=== PATIENT | female | born 1995 | race African-American/Black ===

== ENCOUNTER 2017-03-06 23:29 | Inpatient (IN) | payer MEDICAID ==
[~2017-03-06] VITALS: Ht 175.3 cm; Wt 120.0 kg
[~2017-03-06 23:29] MED LIST: ALBUAER3 INH; DEPO150I IM; NAPR5TAB5 PO; PREN1CAP30 PO
[2017-03-06 23:31] VITALS: BP 163/74; PULSE 103; RESP 18; TEMP 101.5; O2SAT 99
[2017-03-07] VITALS (7 sets, daily range): BP systolic 91–128; BP diastolic 52–74; PULSE 69–107; RESP 16–22; TEMP 97.3–102.4; O2SAT 90–100
--- NOTE | 2017-03-07 00:53 | PD ---
HPI Chief Complaint: Edema Time Seen by Provider: 00:48 Travel History International Travel<30 days: No Contact w/Intl Traveler<30days: No Traveled to known affect area: No History of Present Illness HPI 21 year-old female presents to the emergency department for complaint of right lower extremity pain swelling redness and warmth since yesterday evening. Symptoms have worsened in the last 24 hours. Patient denies any known injury. Patient denies puncture wound insect bite envenomation and denies history of diabetes. Patient's last period was Friday and patient denies . The patient rates her pain 10 over 10 in intensity. FORMERLY [facility] Past Medical History Narrative Medical asthma, no surgery; no tobacco use; nursing notes reviewed Asthma: Yes Diminished Hearing: No Respiratory: Yes (ASTHMA) Immunizations Current: Yes ?: Not : 2 Para: 2 Past Surgical History Surgical History: No Previous Surgery Social History Alcohol Use: No Tobacco Use: No (crit early in ) Substance Use: Yes (HX MARIJUANNA) Allergies-Medications (Allergen,Severity, Reaction): Coded Allergies: No Known Allergies (Verified Allergy, Unknown, 03/07/17) Reported Meds & Prescriptions Reported Meds & Active Scripts Active No Active Prescriptions or Reported Medications Review of Systems Except as stated in HPI: all other systems reviewed are Neg Physical Exam Narrative GENERAL: Well-developed well-nourished female in obvious discomfort with fever SKIN: Warm and dry. Attention right lower extremity warmth redness swelling tenderness. HEAD: Normocephalic. EYES: No scleral icterus. No injection or drainage. NECK: Supple, trachea midline. No JVD or lymphadenopathy. CARDIOVASCULAR: Regular rate and rhythm without murmurs, gallops, or rubs. RESPIRATORY: Breath sounds equal bilaterally. No accessory muscle use. GASTROINTESTINAL: Abdomen soft, non-tender, nondistended. MUSCULOSKELETAL: No cyanosis, or edema. Attention right lower extremity warmth redness swelling tenderness. Refill brisk and less than 2 seconds. BACK: Nontender without obvious deformity. No CVA tenderness. Data Data Last Documented VS Vital Signs Date Time Temp Pulse Resp B/P (MAP) Pulse Ox O2 Delivery O2 Flow Rate FiO2 03/06/17 23:31 101.5 103 18 163/74 (103) 99 Room Air Orders Orders Iv Access Insert/Monitor (03/07/17 00:20) Urinalysis - C+S If Indicated (03/07/17 00:20) Complete Blood Count With Diff (03/07/17 00:20) Blood Culture (03/07/17 00:20) Sepsis Workup Initiated (03/07/17 ) Comprehensive Metabolic Panel (03/07/17 00:29) Lactic Acid Sepsis Protocol (03/07/17 00:29) Blood Culture (03/07/17 00:29) Oximetry (03/07/17 00:29) Blood Glucose (03/07/17 00:29) Vancomycin Inj (Vancomycin Inj) (03/07/17 01:00) Ketorolac Inj (Toradol Inj) (03/07/17 01:00) Sodium Chlor 0.9% 1000 Ml Inj (Ns 1000 M (03/07/17 01:00) Acetaminophen (Tylenol) (03/07/17 01:00) Ed Urine Pregnancytest Poc (03/07/17 00:48) Foot, Complete ([id number]) (03/07/17 ) Tibia/Fibula (Ap/Lat) (03/07/17 ) Us Leg Venous Doppler (03/07/17 ) Ondansetron Inj (Zofran Inj) (03/07/17 01:00) Morphine Inj (Morphine Inj) (03/07/17 01:00) Admit Order (Ed Use Only) (03/07/17 ) Vital Signs (Adult) Q4H (03/07/17 01:24) Activity Oob With Assistance (03/07/17 01:24) Notify Dr: Other (03/07/17 01:24) Labs Laboratory Tests Test 03/07/17 00:30 03/07/17 00:39 White Blood Count 24.4 TH/MM3 Red Blood Count 4.65 MIL/MM3 Hemoglobin 11.9 GM/DL Hematocrit 36.5 % Mean Corpuscular Volume 78.3 FL Mean Corpuscular Hemoglobin 25.5 PG Mean Corpuscular Hemoglobin Concent 32.5 % Red Cell Distribution Width 15.5 % Platelet Count 260 TH/MM3 Mean Platelet Volume 8.3 FL Neutrophils (%) (Auto) 89.7 % Lymphocytes (%) (Auto) 6.7 % Monocytes (%) (Auto) 3.4 % Eosinophils (%) (Auto) 0.0 % Basophils (%) (Auto) 0.2 % Neutrophils # (Auto) 21.9 TH/MM3 Lymphocytes # (Auto) 1.6 TH/MM3 Monocytes # (Auto) 0.8 TH/MM3 Eosinophils # (Auto) 0.0 TH/MM3 Basophils # (Auto) 0.0 TH/MM3 CBC Comment DIFF FINAL Differential Comment Lactic Acid Level 1.1 mmol/L MDM Medical Decision Making Medical Screen Exam Complete: Yes Emergency Medical Condition: Yes Medical Record Reviewed: Yes Interpretation(s) no dvt Last Impressions Tibia/Fibula X-Ray 03/07/17 0000 Signed Impressions: Service Date/Time: Tuesday, March 07, 2017 01:04 - CONCLUSION: Diffuse superficial soft tissue edema. No evidence of fracture. Kentrell Bone MD Lower Extremity Ultrasound 03/07/17 0000 Signed Impressions: Service Date/Time: Tuesday, March 07, 2017 01:08 - CONCLUSION: No evidence of right lower extremity DVT. Kentrell Bone MD Foot X-Ray 03/07/17 0000 Signed Impressions: Service Date/Time: Tuesday, March 07, 2017 01:05 - CONCLUSION: Diffuse superficial soft tissue edema. Kentrell Bone MD CBC & BMP Diagram 03/07/17 00:30 Vital Signs Date Time Temp Pulse Resp B/P (MAP) Pulse Ox O2 Delivery O2 Flow Rate FiO2 03/06/17 23:31 101.5 103 18 163/74 (103) 99 Room Air Differential Diagnosis Cellulitis, DVT, compartment syndrome Narrative Course IV access obtained specimens collected and sent for resulting patient administered vancomycin acetaminophen and Toradol patient will be admitted for management of acute cellulitis of the right lower extremity ultrasound to rule out DVT ordered Patient informed of imaging results and lab results and need for admission Patient will be admitted for sepsis and cellulitis right lower extremity Sepsis Criteria SIRS Criteria (2 or more): Temp > 100.9 or < 96.8, Heart rate over 90, WBC > 01816, < 4000 or > 10% bands Sepsis Criteria (SIRS+source): Infect source susp/known (cellulitis RLE) Physician Communication Physician Communication discussed with DR Garcia Diagnosis Primary Impression: Cellulitis of right leg Additional Impression: Sepsis Admitting Information Admitting Physician Requests: Admit Scripts No Active Prescriptions or Reported Meds Karla Lemus MD Mar 07, 2017 00:53
[2017-03-07] MEDS ORDERED: ONDANSETRON HCL 4 MG/2 ML VIAL IV PUSH ONE (01:00)
[2017-03-07] MEDS ORDERED: MORPHINE SULFATE 4 MG/ML INJ IV PUSH ONE (01:00)
[2017-03-07] MEDS ORDERED: ACETAMINOPHEN 500 MG CPLT PO ONE (01:00)
[2017-03-07] MEDS ORDERED: KETOROLAC TROMETHAMINE 30 MG/ML (IVP) VIAL IV PUSH ONE (01:00)
[2017-03-07] MEDS ORDERED: SODIUM CHLOR 0.9% 1000 ML INJ 1,000 ML IV ONE (01:00)
[2017-03-07] MEDS ORDERED: VANCOMYCIN INJ 1,000 MG in SODIUM CHLOR 0.9% 250 ML INJ 250 ML IV ONE (01:00)
[2017-03-07 01:09] LABS: AUTOMATED NEUTROPHIL # 21.9 TH/MM3 (1.8-7.7); BASOPHIL % 0.2 % (0.0-2.0); HEMATOCRIT 36.5 % (35.0-46.0); HEMO FLAGS DIFF FINAL; LYMPH % 6.7 % (9.0-44.0); LYMPHOCYTE # 1.6 TH/MM3 (1.0-4.8); MEAN CELL VOLUME 78.3 FL (80.0-100.0); MEAN CORPUSCULAR HEMOGLOBIN 25.5 PG (27.0-34.0); MEAN CORPUSCULAR HGB CONC 32.5 % (32.0-36.0); MONO % 3.4 % (0.0-8.0); NEUT % 89.7 % (16.0-70.0); PLATELET COUNT 260 TH/MM3 (150-450); RED BLOOD COUNT 4.65 MIL/MM3 (4.00-5.30); RED CELL DISTRIBUTION WIDTH 15.5 % (11.6-17.2); WHITE BLOOD COUNT 24.4 TH/MM3 (4.0-11.0)
--- NOTE | 2017-03-07 01:20 | RADRPT ---
EXAM DATE/TIME: 03/07/2017 01:04 [facility] COMPARISON: No previous studies available for comparison. INDICATIONS : Right leg swelling x 1 day MEDICAL HISTORY : None. SURGICAL HISTORY : None. ENCOUNTER: Initial ACUITY: 1 day PAIN SCORE: 7/10 LOCATION: Right Tib-fib FINDINGS: 4 views right tibia and fibula. Bone alignment within normal limits. No evidence of fracture. No foc al bone erosion. Corticated ossicle of the tibial tubercle. Diffuse superficial soft tissue edema. CONCLUSION: Diffuse superficial soft tissue edema. No evidence of fracture. Kentrell Bone MD on March 07, 2017 at 1:17 Board Certified Radiologist. This report was verified electronically.
--- NOTE | 2017-03-07 01:22 | RADRPT ---
EXAM DATE/TIME: 03/07/2017 01:05 [facility] COMPARISON: No previous studies available for comparison. INDICATIONS : Right foot swelling x 1 day. MEDICAL HISTORY : None. SURGICAL HISTORY : None. ENCOUNTER: Initial ACUITY: 1 day PAIN SCORE: 7/10 LOCATION: Right Foot FINDINGS: 3 views right foot. There is a small well-defined and corticated middle phalanx of the second toe ind icating an anatomic variant. Bone alignment within normal limits. No evidence of fracture. Diffuse s uperficial soft tissue edema. CONCLUSION: Diffuse superficial soft tissue edema. Kentrell Bone MD on March 07, 2017 at 1:19 Board Certified Radiologist. This report was verified electronically.
--- NOTE | 2017-03-07 01:37 | RADRPT ---
EXAM DATE/TIME: 03/07/2017 01:08 [facility] COMPARISON: No previous studies available for comparison. INDICATIONS : Right leg swelling. MEDICAL HISTORY : Asthma. Substance use. SURGICAL HISTORY : None. ENCOUNTER: Subsequent ACUITY: 1 week PAIN SCORE: 6/10 LOCATION: Right leg. TECHNIQUE: Venous ultrasound of the leg was performed from the inguinal ligament to the proximal calf. Real-marcelina e, color Doppler and spectral tracing, compression and augmentation techniques were used. FINDINGS: There is normal compressibility of the deep venous system from the inguinal region to the proximal ca lf. No echogenic clot is seen in the lumen of the common femoral, femoral, popliteal, and posterior tibial veins. There is a normal response of the venous system to proximal and distal augmentation an d respiration. CONCLUSION: No evidence of right lower extremity DVT. Kentrell Bone MD on March 07, 2017 at 1:35 Board Certified Radiologist. This report was verified electronically.
[2017-03-07] MEDS ORDERED: ACETAMINOPHEN 325 MG TAB PO PRN (01:45)
[2017-03-07] MEDS ORDERED: ONDANSETRON HCL 4 MG/2 ML VIAL IVP PRN (01:45)
[2017-03-07] MEDS ORDERED: BISACODYL 10 MG SUPP RECTAL PRN (01:45)
[2017-03-07] MEDS ORDERED: Vancomycin Consult Pharmacy 1 EA OTHER SCH (01:45)
[2017-03-07] MEDS ORDERED: MAGNESIUM HYDROXIDE SUSP 30 ML CUP PO PRN (01:45)
[2017-03-07] MEDS ORDERED: LACTULOSE SYRUP 20 GM/30 ML CUP PO PRN (01:45)
[2017-03-07] MEDS ORDERED: SODIUM CHLORIDE 0.9% FLUSH 10 ML FLUSH IV FLUSH PRN (01:45)
[2017-03-07] MEDS ORDERED: SENNOSIDES 8.6 MG TAB PO PRN (01:45)
[2017-03-07] MEDS ORDERED: MORPHINE SULFATE 2 MG/ML INJ IV PRN (02:00)
--- NOTE | 2017-03-07 02:14 | HHI.HP ---
[facility] Renaldo Stack MD Admission Diagnosis RLE cellulitis; sepsis Diagnoses: (1) Sepsis Diagnosis: Principal (2) Cellulitis of right leg Diagnosis: Principal (3) HTN (hypertension) Diagnosis: Principal Travel History International Travel<30 Days: No Contact w/Intl Traveler <30 Da: No Traveled to Known Affected Are: No History of Present Illness This is a 21-year-old female with a PMH of Asthma who presented to the ER with complaints of right leg pain and swelling x1 day. Denies injury, trauma or known insect bite. States symptoms started last night and have gotten progressively worse, today w/ difficulty ambulating due to pain. No reported fever/chills. On arrival, BP 163/74, HR 103, O2 sat 99% on RA, Temp 102.4. WBC 24.4. Tib-fib/Foot X-ray with diffuse superficial soft tissue edema, no fracture. LE Doppler negative for DVT. S/p Blood Cultures and Vanc in ER. Review of Systems Except as stated in HPI: all other systems reviewed are Neg ROS: 14 point review of systems otherwise negative. Past Family Social History Past Medical History PMH: Asthma Past Surgical History PAST SURGICAL HISTORY: None Allergies: Coded Allergies: No Known Allergies (Verified Allergy, Unknown, 03/07/17) Family History PAST FAMILY HISTORY: Reviewed. No h/o DM or CAD Social History PAST SOCIAL HISTORY: Negative for alcohol, tobacco or drugs. Physical Exam Vital Signs Vital Signs Date Time Temp Pulse Resp B/P (MAP) Pulse Ox O2 Delivery O2 Flow Rate FiO2 03/07/17 01:52 102.4 107 18 128/72 (90) 100 Room Air 03/06/17 23:31 101.5 103 18 163/74 (103) 99 Room Air Physical Exam PE: GENERAL: Young obese black female in no acute distress. HEENT: PERRLA, EOMI. No scleral icterus or conjunctival pallor. No lid lag or facial droop. CARDIOVASCULAR: Regular rate and rhythm. No obvious murmurs to auscultation. No chest tenderness to palpation. RESPIRATORY: No obvious rhonchi or wheezing. Clear to auscultation. Breath sounds equal bilaterally. GASTROINTESTINAL: Abdomen soft, non-tender, nondistended. BS normal. MUSCULOSKELETAL: Extremities without clubbing, cyanosis, or edema. No obvious deformities. RLE swelling/erythema, no obvious puncture/abscess. Pulses intact NEUROLOGICAL: Awake, alert and oriented x4. No focal neurologic deficits. Moving both upper and lower extremities spontaneously. Laboratory Laboratory Tests Test 03/07/17 00:30 03/07/17 00:39 White Blood Count 24.4 Red Blood Count 4.65 Hemoglobin 11.9 Hematocrit 36.5 Mean Corpuscular Volume 78.3 Mean Corpuscular Hemoglobin 25.5 Mean Corpuscular Hemoglobin Concent 32.5 Red Cell Distribution Width 15.5 Platelet Count 260 Mean Platelet Volume 8.3 Neutrophils (%) (Auto) 89.7 Lymphocytes (%) (Auto) 6.7 Monocytes (%) (Auto) 3.4 Eosinophils (%) (Auto) 0.0 Basophils (%) (Auto) 0.2 Neutrophils # (Auto) 21.9 Lymphocytes # (Auto) 1.6 Monocytes # (Auto) 0.8 Eosinophils # (Auto) 0.0 Basophils # (Auto) 0.0 CBC Comment DIFF FINAL Differential Comment Lactic Acid Level 1.1 Date/Time Source Procedure Growth Status 03/07/17 00:30 Blood Peripheral Aerobic Blood Culture Pending Received 03/07/17 00:30 Blood Peripheral Anaerobic Blood Culture Pending Received Result Diagram: 03/07/17 0030 Caprini VTE Risk Assessment Caprini VTE Risk Assessment: No/Low Risk (score <= 1) Caprini Risk Assessment Model Point Value = 1 Point Value = 2 Point Value = 3 Point Value = 5 Age 41-60 Minor surgery BMI > 25 kg/m2 Swollen legs Varicose veins or History of unexplained or recurrent spontaneous Oral contraceptives or hormone replacement Sepsis (< 1 month) Serious lung disease, including pneumonia (< 1 month) Abnormal pulmonary function Acute myocardial infarction Congestive heart failure (< 1 month) History of inflammatory bowel disease Medical patient at bed rest Age 61-74 Arthroscopic surgery Major open surgery (> 45 min) Laparoscopic surgery (> 45 min) Malignancy Confined to bed (> 72 hours) Immobilizing plaster cast Central venous access Age >= 75 History of VTE Family history of VTE Factor V Leiden Prothrombin [id number] Lupus anticoagulant Anticardiolipin antibodies Elevated serum homocysteine Heparin-induced thrombocytopenia Other congenital or acquired thrombophilia Stroke (< 1 month) Elective arthroplasty Hip, pelvis, or leg fracture Acute spinal cord injury (< 1 month) Prophylaxis Regimen Total Risk Factor Score Risk Level Prophylaxis Regimen 0-1 Low Early ambulation 2 Moderate Order ONE of the following: *Sequential Compression Device (SCD) *Heparin 5000 units SQ BID 3-4 Higher Order ONE of the following medications: *Heparin 5000 units SQ TID *Enoxaparin/Lovenox 40 mg SQ daily (WT < 150 kg, CrCl > 30 mL/min) *Enoxaparin/Lovenox 30 mg SQ daily (WT < 150 kg, CrCl > 10-29 mL/min) *Enoxaparin/Lovenox 30 mg SQ BID (WT < 150 kg, CrCl > 30 mL/min) AND/OR *Sequential Compression Device (SCD) 5 or more Highest Order ONE of the following medications: *Heparin 5000 units SQ TID (Preferred with Epidurals) *Enoxaparin/Lovenox 40 mg SQ daily (WT < 150 kg, CrCl > 30 mL/min) *Enoxaparin/Lovenox 30 mg SQ daily (WT < 150 kg, CrCl > 10-29 mL/min) *Enoxaparin/Lovenox 30 mg SQ BID (WT < 150 kg, CrCl > 30 mL/min) AND *Sequential Compression Device (SCD) Assessment and Plan Problem List: (1) Sepsis ICD Code: A41.9 - Sepsis, unspecified organism Status: Acute (2) Cellulitis of right leg ICD Code: L03.115 - Cellulitis of right lower limb Status: Acute (3) HTN (hypertension) ICD Code: I10 - Essential (primary) hypertension Assessment and Plan A/P: 1. Sepsis: Temp 102.4, WBC 24, HR 103, Source-RLE Cellulitis. S/p Blood Cultures, Vanc IV in ER. Follow up cultures, continue IV Abx. 2. RLE Cellulitis: Right Tib-Fib/Foot X-ray w/ diffuse superficial soft tissue edema, no obvious fracture, LE Doppler negative for DVT, images reviewed by me. Continue w/ IV Vanc, add Cefepime. Follow up cultures as above. 3. HTN: BP 160's on arrival, likely compounded by pain complaints, BP currently 120's. Will monitor. Optimize pain control. 4. DVT Prophylaxis: Mechanical contraindication secondary to LE infection. Heparin sq 5. Social work for d/c planning as needed. 6. Case discussed w/ ER physician at length. Physician Certification 2 Midnight Certification Type: Admission for Inpatient Services Order for Inpatient Services The services are ordered in accordance with Medicare regulations or non- Medicare payer requirements, as applicable. In the case of services not specified as inpatient-only, they are appropriately provided as inpatient services in accordance with the 2-midnight benchmark. Estimated LOS (days): 2 days is the estimated time the patient will need to remain in the hospital, assuming treatment plan goals are met and no additional complications. Post-Hospital Plan: Not yet determined Rose Garcia MD Mar 07, 2017 02:14
[2017-03-07 02:23] LABS: ALT (GPT) 14 U/L (10-53); ANION GAP 6 MEQ/L (5-15); AST (GOT) 10 U/L (15-37); BICARBONATE 28.1 MEQ/L (21.0-32.0); BLOOD UREA NITROGEN 10 MG/DL (7-18); CHLORIDE 103 MEQ/L (98-107); GLOMERULAR FILTRATION RATE 79 ML/MIN (>89); SODIUM (NA) 137 MEQ/L (136-145)
[2017-03-07 02:25] LABS: ALKALINE PHOSPHATASE 86 U/L (45-117); TOTAL BILIRUBIN ADULT 0.5 MG/DL (0.2-1.0)
[2017-03-07] MEDS: SODIUM CHLOR 0.9% 1000 ML INJ 1,000 ML IV SCH ×2 (02:37→11:51)
[2017-03-07] MEDS ORDERED: VANCOMYCIN 1,000 MG/NS 250 ML IV ONE ×2 (03:00)
[2017-03-07] MEDS: CEFEPIME INJ 1,000 MG in SODIUM CHLORIDE 0.9% INJ 100 ML IV SCH ×2 (03:02→13:53)
[2017-03-07 05:29] LABS: BACTERIA, URINE RARE /hpf; BLOOD, URINE NEG (NEG); GLUCOSE,URINE NEG (NEG); KETONE, URINE NEG (NEG); MUCUS URINE FEW /lpf (OCC); NITRITE,URINE NEG (NEG); SQUAMOUS EPITHELIAL CELL URINE 1 /hpf (0-5); URINE COLOR YELLOW (YELLW/STRAW)
[2017-03-07 05:32] LABS: COMMENT (UR) CULTURE INDICATED; CULTURE IF INDICATED CULTURE INDICATED
[2017-03-07] MEDS: SODIUM CHLORIDE 0.9% FLUSH 10 ML FLUSH IV FLUSH SCH ×2 (09:00→21:05)
[2017-03-07] MEDS: DOCUSATE SODIUM 50 MG/SENNA 8.6 MG TAB PO SCH ×2 (10:15→21:00)
[2017-03-07] MEDS: HEPARIN SODIUM - SQ 10,000 UNITS/ML VIAL SQ SCH ×2 (10:16→21:06)
[2017-03-07] MEDS: ACETAMINOPHEN/HYDROcodone 325 MG/5 MG TAB PO PRN ×2 (10:20→21:07)
--- NOTE | 2017-03-07 11:08 | HHI.PR ---
Subjective Remarks Follow-up sepsis/right lower extremity cellulitis 03/07/17-patient seen and examined, Tmax 102.4 at 8 PM however currently afebrile. Continue to complain of right lower extremity pain. Objective Vitals Vital Signs Date Time Temp Pulse Resp B/P (MAP) Pulse Ox O2 Delivery O2 Flow Rate FiO2 03/07/17 08:00 97.3 69 16 119/74 (89) 90 03/07/17 04:00 98.7 94 17 109/54 (72) 95 03/07/17 03:29 03/07/17 03:02 99.9 93 18 99 Room Air 03/07/17 01:52 102.4 107 18 128/72 (90) 100 Room Air 03/06/17 23:31 101.5 103 18 163/74 (103) 99 Room Air I/O 03/06/17 03/06/17 03/06/17 03/07/17 03/07/17 03/07/17 07:00 15:00 23:00 07:00 15:00 23:00 Intake Total 480 ml Output Total 475 ml Balance 5 ml Intake Oral 480 ml Output Urine Total 475 ml # Voids 7 Result Diagram: 03/07/17 0030 03/07/17 0030 Imaging Last Impressions Tibia/Fibula X-Ray 03/07/17 0000 Signed Impressions: Service Date/Time: Tuesday, March 07, 2017 01:04 - CONCLUSION: Diffuse superficial soft tissue edema. No evidence of fracture. Kentrell Bone MD Lower Extremity Ultrasound 03/07/17 0000 Signed Impressions: Service Date/Time: Tuesday, March 07, 2017 01:08 - CONCLUSION: No evidence of right lower extremity DVT. Kentrell Bone MD Foot X-Ray 03/07/17 0000 Signed Impressions: Service Date/Time: Tuesday, March 07, 2017 01:05 - CONCLUSION: Diffuse superficial soft tissue edema. Kentrell Bone MD Objective Remarks GENERAL: NAD SKIN: Warm and dry. HEAD: Normocephalic. EYES: No scleral icterus. No injection or drainage. NECK: Supple, trachea midline. No JVD or lymphadenopathy. CARDIOVASCULAR: Regular rate and rhythm without murmurs, gallops, or rubs. RESPIRATORY: Breath sounds equal bilaterally. No accessory muscle use. GASTROINTESTINAL: Abdomen soft, non-tender, nondistended. MUSCULOSKELETAL: No cyanosis, or edema. RLE TTP, warm to touch BACK: Nontender without obvious deformity. No CVA tenderness. A/P Problem List: (1) Sepsis ICD Code: A41.9 - Sepsis, unspecified organism Status: Acute (2) Cellulitis of right leg ICD Code: L03.115 - Cellulitis of right lower limb Status: Acute (3) HTN (hypertension) ICD Code: I10 - Essential (primary) hypertension (4) Erysipelas of lower extremity ICD Code: A46 - Erysipelas Assessment and Plan 21-year-old female with 1. Sepsis: Source-RLE Cellulitis. S/p Blood Cultures, Follow up cultures, continue IV Abx including vancomycin and cefepime. 2. RLE Cellulitis/erysipelas: Right Tib-Fib/Foot X-ray w/ diffuse superficial soft tissue edema, no obvious fracture, LE Doppler negative for DVT, images reviewed by me. Continue w/ IV Vanc and Cefepime. Follow up cultures as above. 3. Elevated BP: Currently normotensive, Optimize pain control. 4. DVT Prophylaxis: Mechanical contraindication secondary to LE infection. Heparin sq Rob Wood MD Mar 07, 2017 11:07
[2017-03-07] MEDS ORDERED: ONDANSETRON HCL 4 MG/2 ML VIAL IV PUSH PRN (11:15)
[2017-03-07] MEDS ORDERED: TEMAZEPAM 15 MG CAP PO PRN (11:15)
[2017-03-07] MEDS: ACETAMINOPHEN 325 MG TAB PO PRN ×2 (17:09→21:07)
[2017-03-07] MEDS: VANCOMYCIN INJ 2,250 MG in SODIUM CHLORID 0.9% 500 ML INJ 500 ML IV SCH (17:10)
[2017-03-08] VITALS: BP 113/56; PULSE 91; RESP 22; TEMP 99.3; O2SAT 99
[2017-03-08] MEDS: CEFEPIME INJ 1,000 MG in SODIUM CHLORIDE 0.9% INJ 100 ML IV SCH ×2 (02:23→12:10)
[2017-03-08 04:00] VITALS: BP 108/64; PULSE 101; RESP 20; TEMP 100.8; O2SAT 95
[2017-03-08] MEDS: ACETAMINOPHEN/HYDROcodone 325 MG/5 MG TAB PO PRN ×3 (05:03→17:20)
[2017-03-08] MEDS: VANCOMYCIN INJ 2,250 MG in SODIUM CHLORID 0.9% 500 ML INJ 500 ML IV SCH ×2 (05:03→17:21)
[2017-03-08 07:11] LABS: AUTOMATED NEUTROPHIL # 10.4 TH/MM3 (1.8-7.7); BASOPHIL % 0.1 % (0.0-2.0); EOSINOPHIL # 0.1 TH/MM3 (0-0.4); EOSINOPHIL % 0.6 % (0.0-4.0); HEMATOCRIT 28.9 % (35.0-46.0); HEMO FLAGS DIFF FINAL; LYMPHOCYTE # 1.4 TH/MM3 (1.0-4.8); MEAN CELL VOLUME 78.1 FL (80.0-100.0); MEAN CORPUSCULAR HEMOGLOBIN 25.3 PG (27.0-34.0); MEAN CORPUSCULAR HGB CONC 32.5 % (32.0-36.0); MONO % 6.5 % (0.0-8.0); NEUT % 81.8 % (16.0-70.0); PLATELET COUNT 181 TH/MM3 (150-450); RED CELL DISTRIBUTION WIDTH 15.6 % (11.6-17.2); WHITE BLOOD COUNT 12.7 TH/MM3 (4.0-11.0)
[2017-03-08 07:33] LABS: ALKALINE PHOSPHATASE 69 U/L (45-117); ALT (GPT) 16 U/L (10-53); ANION GAP 6 MEQ/L (5-15); AST (GOT) 11 U/L (15-37); BICARBONATE 26.3 MEQ/L (21.0-32.0); BLOOD UREA NITROGEN 5 MG/DL (7-18); CHLORIDE 107 MEQ/L (98-107); GLOMERULAR FILTRATION RATE 142 ML/MIN (>89); POTASSIUM 3.4 MEQ/L (3.5-5.1); SODIUM (NA) 139 MEQ/L (136-145); TOTAL BILIRUBIN ADULT 0.3 MG/DL (0.2-1.0)
[2017-03-08] MEDS: SODIUM CHLORIDE 0.9% FLUSH 10 ML FLUSH IV FLUSH SCH (07:49)
[2017-03-08] MEDS: HEPARIN SODIUM - SQ 10,000 UNITS/ML VIAL SQ SCH (07:52)
[2017-03-08] MEDS: DOCUSATE SODIUM 50 MG/SENNA 8.6 MG TAB PO SCH (07:54)
[2017-03-08 08:00] VITALS: BP 106/56; PULSE 80; RESP 16; TEMP 100.2; O2SAT 100
--- NOTE | 2017-03-08 10:29 | HHI.PR ---
Subjective Remarks Follow-up sepsis/right lower extremity cellulitis 03/07/17-patient seen and examined, Tmax 102.4 at 8 PM however currently afebrile. Continue to complain of right lower extremity pain. 03/08/17-patient seen and examined, spiking fevers this morning however report some improvement of right lower extremity pain. Objective Vitals Vital Signs Date Time Temp Pulse Resp B/P (MAP) Pulse Ox O2 Delivery O2 Flow Rate FiO2 03/08/17 08:00 100.2 80 16 106/56 (73) 100 03/08/17 04:00 100.8 101 20 108/64 (79) 95 03/08/17 00:00 99.3 91 22 113/56 (75) 99 03/07/17 20:00 87 03/07/17 20:00 101.4 94 22 114/53 (73) 96 03/07/17 16:00 101.6 94 17 121/62 (81) 92 03/07/17 12:00 99.4 92 16 91/52 (65) 92 03/07/17 11:20 16 I/O 03/07/17 03/07/17 03/07/17 03/08/17 03/08/17 03/08/17 07:00 15:00 23:00 07:00 15:00 23:00 Intake Total 480 ml 600 ml 835 ml 340 ml 522.5 ml Output Total 475 ml 3 ml Balance 5 ml 600 ml 832 ml 340 ml 522.5 ml Intake Oral 480 ml 835 ml 240 ml IV Total 600 ml 100 ml 522.5 ml Output Urine Total 475 ml 3 ml # Voids 7 3 # Bowel Movements 1 Result Diagram: 03/08/17 0451 03/08/17 0451 Imaging Last Impressions Tibia/Fibula X-Ray 03/07/17 0000 Signed Impressions: Service Date/Time: Tuesday, March 07, 2017 01:04 - CONCLUSION: Diffuse superficial soft tissue edema. No evidence of fracture. Kentrell Bone MD Lower Extremity Ultrasound 03/07/17 0000 Signed Impressions: Service Date/Time: Tuesday, March 07, 2017 01:08 - CONCLUSION: No evidence of right lower extremity DVT. Kentrell Bone MD Foot X-Ray 03/07/17 0000 Signed Impressions: Service Date/Time: Tuesday, March 07, 2017 01:05 - CONCLUSION: Diffuse superficial soft tissue edema. Kentrell Bone MD Objective Remarks GENERAL: NAD SKIN: Warm and dry. HEAD: Normocephalic. EYES: No scleral icterus. No injection or drainage. NECK: Supple, trachea midline. No JVD or lymphadenopathy. CARDIOVASCULAR: Regular rate and rhythm without murmurs, gallops, or rubs. RESPIRATORY: Breath sounds equal bilaterally. No accessory muscle use. GASTROINTESTINAL: Abdomen soft, non-tender, nondistended. MUSCULOSKELETAL: No cyanosis, or edema. RLE TTP, warm to touch. size RLE>LLE BACK: Nontender without obvious deformity. No CVA tenderness. A/P Problem List: (1) Sepsis ICD Code: A41.9 - Sepsis, unspecified organism Status: Acute (2) Cellulitis of right leg ICD Code: L03.115 - Cellulitis of right lower limb Status: Acute (3) HTN (hypertension) ICD Code: I10 - Essential (primary) hypertension (4) Erysipelas of lower extremity ICD Code: A46 - Erysipelas Assessment and Plan 21-year-old female with 1. Sepsis: Source-RLE Cellulitis. S/p Blood Cultures, Follow up cultures, continue IV Abx including vancomycin and cefepime. 2. RLE Cellulitis/erysipelas: Right Tib-Fib/Foot X-ray w/ diffuse superficial soft tissue edema, no obvious fracture, LE Doppler negative for DVT. Continue w / IV Vanc and Cefepime pending culture report. ID consult PRN 3. Elevated BP: Currently normotensive, Optimize pain control. 4. DVT Prophylaxis: Mechanical contraindication secondary to LE infection. Heparin sq Rob Wood MD Mar 08, 2017 10:29
[2017-03-08 12:00] VITALS: BP 118/59; PULSE 94; RESP 16; TEMP 100.4; O2SAT 100
[2017-03-08] MEDS: ACETAMINOPHEN 325 MG TAB PO PRN (12:10)
[2017-03-08 16:00] VITALS: BP 104/57; PULSE 81; RESP 16; TEMP 96; O2SAT 99
[2017-03-08] MEDS: SODIUM CHLOR 0.9% 1000 ML INJ 1,000 ML IV SCH (17:15)
[2017-03-09] MEDS ORDERED: PHARMACY ORDERED LAB ONE (05:45)
== END 2017-03-08 19:30 | disposition left against medical advice (07) | DRG 872 ==
LOC: NEPC 23:29 → NEDA 03-07 01:26 → N07A 03-07 03:22
PROVIDERS: ADMIT Hospitalist; ATTEND Hospitalist
DX: A41.9 Sepsis, unspecified organism (principal); I10 Essential (primary) hypertension; L03.115 Cellulitis of right lower limb; J45.909 Unspecified asthma, uncomplicated; E66.9 Obesity, unspecified; Z68.39 Body mass index [BMI] 39.0-39.9, adult; A46 Erysipelas
CPT/HCPCS: 73590; 73630; 80053; 81001; 83605; 84703; 85025; 87040; 87086; 93971; J0692; J1644; J1885; J2405; J3370; J7030; J7040; J7050

== ENCOUNTER 2017-08-10 13:17 | Emergency (ER) | payer MEDICAID ==
[~2017-08-10] VITALS: Ht 175.3 cm; Wt 109.0 kg
[2017-08-10 13:27] VITALS: BP 134/74; PULSE 71; RESP 18; TEMP 99.4; O2SAT 100
[2017-08-10 14:38] LABS: AUTOMATED NEUTROPHIL # 5.6 TH/MM3 (1.8-7.7); BASOPHIL % 0.3 % (0.0-2.0); EOSINOPHIL # 0.1 TH/MM3 (0-0.4); EOSINOPHIL % 1.1 % (0.0-4.0); HEMATOCRIT 33.4 % (35.0-46.0); HEMOGLOBIN 10.8 GM/DL (11.6-15.3); LYMPH % 23.9 % (9.0-44.0); MEAN CELL VOLUME 77.6 FL (80.0-100.0); MEAN CORPUSCULAR HEMOGLOBIN 25.2 PG (27.0-34.0); MEAN CORPUSCULAR HGB CONC 32.5 % (32.0-36.0); MEAN PLATELET VOLUME 8.4 FL (7.0-11.0); MONO % 7.3 % (0.0-8.0); MONOCYTE # 0.6 TH/MM3 (0-0.9); NEUT % 67.4 % (16.0-70.0); PLATELET COUNT 256 TH/MM3 (150-450); RED CELL DISTRIBUTION WIDTH 18.1 % (11.6-17.2); WHITE BLOOD COUNT 8.3 TH/MM3 (4.0-11.0)
[2017-08-10 14:51] LABS: BILIRUBIN, URINE NEG (NEG); BLOOD, URINE NEG (NEG); GLUCOSE,URINE NEG (NEG); KETONE, URINE NEG (NEG); NITRITE,URINE NEG (NEG); PH, URINE 7.5 (5.0-8.5); SQUAMOUS EPITHELIAL CELL URINE 7 /hpf (0-5); TRANSITIONAL EPI CELLS, URINE <1 /hpf; URINE COLOR LIGHT-YELLOW (YELLW/STRAW); URINE LEUKOCYTE ESTERASE MOD (NEG)
[2017-08-10 14:56] LABS: BICARBONATE 24.9 MEQ/L (21.0-32.0); CALCIUM 8.8 MG/DL (8.5-10.1); CREATININE 0.56 MG/DL (0.50-1.00)
--- NOTE | 2017-08-10 15:27 | PD ---
HPI . Abdominal pain Chief Complaint: Abdominal Pain Time Seen by Provider: 13:32 Travel History International Travel<30 days: No Contact w/Intl Traveler<30days: No Traveled to known affect area: No History of Present Illness HPI This patient presents stating that she is and is having diffuse abdominal pain. Onset yesterday. Severity 8. Associated with hematemesis. Last menstrual period was in May. She reports a positive home test. She has not yet seen a doctor. PFSH Past Medical History Asthma: Yes Cancer: No Cardiovascular Problems: No COPD: No Diminished Hearing: No Endocrine: No Gastrointestinal Disorders: No Genitourinary: No Immune Disorder: No Implanted Vascular Access Dvce: No Musculoskeletal: No Neurologic: No Psychiatric: No Reproductive: No Respiratory: Yes Immunizations Current: Yes Sleep Apnea: No ?: Unknown LMP: UNKNOWN : 2 Para: 2 Past Surgical History Other Surgery: No Social History Alcohol Use: No Tobacco Use: No (crit early in ) Substance Use: Yes (Marijuana ) Allergies-Medications (Allergen,Severity, Reaction): Coded Allergies: No Known Allergies (Verified Allergy, Unknown, 03/07/17) Reported Meds & Prescriptions Reported Meds & Active Scripts Active No Active Prescriptions or Reported Medications Review of Systems Except as stated in HPI: all other systems reviewed are Neg Physical Exam Narrative GENERAL: Awake and alert and in no acute distress. Smiling. SKIN: Warm and dry. HEAD: Normocephalic/atraumatic. EYES: Pupils are equal. Extraocular movements are intact. ENT: Mucous membranes are pink. NECK: Normal range of motion. CARDIOVASCULAR: Regular rate and rhythm. RESPIRATORY: Nonlabored respirations. ABDOMEN: Abdomen is soft with no tenderness to palpation. RECTAL: No hemorrhoids noted. No rectal masses. MUSCULOSKELETAL: Atraumatic. NEUROLOGICAL: Nonfocal. PSYCHIATRIC: Appropriate mood and affect. Data Data Last Documented VS Vital Signs Date Time Temp Pulse Resp B/P (MAP) Pulse Ox O2 Delivery O2 Flow Rate FiO2 08/10/17 13:27 99.4 71 18 134/74 (94) 100 Orders Orders Beta Hcg (Quant/Titer) (08/10/17 13:34) Complete Blood Count With Diff (08/10/17 13:34) Basic Metabolic Panel (Bmp) (08/10/17 13:34) Urinalysis - C+S If Indicated (08/10/17 13:34) Iv Access Insert/Monitor (08/10/17 13:34) Ed Poc Ultrasound (08/10/17 13:34) Labs Laboratory Tests Test 08/10/17 13:45 White Blood Count 8.3 TH/MM3 Red Blood Count 4.30 MIL/MM3 Hemoglobin 10.8 GM/DL Hematocrit 33.4 % Mean Corpuscular Volume 77.6 FL Mean Corpuscular Hemoglobin 25.2 PG Mean Corpuscular Hemoglobin Concent 32.5 % Red Cell Distribution Width 18.1 % Platelet Count 256 TH/MM3 Mean Platelet Volume 8.4 FL Neutrophils (%) (Auto) 67.4 % Lymphocytes (%) (Auto) 23.9 % Monocytes (%) (Auto) 7.3 % Eosinophils (%) (Auto) 1.1 % Basophils (%) (Auto) 0.3 % Neutrophils # (Auto) 5.6 TH/MM3 Lymphocytes # (Auto) 2.0 TH/MM3 Monocytes # (Auto) 0.6 TH/MM3 Eosinophils # (Auto) 0.1 TH/MM3 Basophils # (Auto) 0.0 TH/MM3 CBC Comment DIFF FINAL Differential Comment Urine Color LIGHT-YELLOW Urine Turbidity HAZY Urine pH 7.5 Urine Specific [place] 1.010 Urine Protein NEG mg/dL Urine Glucose (UA) NEG mg/dL Urine Ketones NEG mg/dL Urine Occult Blood NEG Urine Nitrite NEG Urine Bilirubin NEG Urine Urobilinogen LESS THAN 2.0 MG/DL Urine Leukocyte Esterase MOD Urine RBC 1 /hpf Urine WBC 3 /hpf Urine Squamous Epithelial Cells 7 /hpf Urine Transitional Epithelial Cells <1 /hpf Microscopic Urinalysis Comment CULT NOT INDICATED Blood Urea Nitrogen 5 MG/DL Creatinine 0.56 MG/DL Random Glucose 73 MG/DL Calcium Level 8.8 MG/DL Sodium Level 138 MEQ/L Potassium Level 3.7 MEQ/L Chloride Level 106 MEQ/L Carbon Dioxide Level 24.9 MEQ/L Anion Gap 7 MEQ/L Estimat Glomerular Filtration Rate 162 ML/MIN Human Chorionic Gonadotropin, Quant 86352 MIU/ML [facility] Medical Decision Making Medical Screen Exam Complete: Yes Emergency Medical Condition: Yes Differential Diagnosis Differential diagnosis of abdominal pain includes but is not limited to gastritis, pancreatitis, hepatitis, gastroenteritis, constipation, urinary retention, peptic ulcer disease, diverticulitis or appendicitis Narrative Course Patient presents stating that she is and that she is having diffuse abdominal pain. She also reported that she was vomiting blood. She looks well. She does not appear to be in any pain. Her abdominal exam is benign. CBC & BMP Diagram 08/10/17 13:45 Calcium Level 8.8 Quantitative hCG 84,000 UA negative Procedures Procedure Narrative Emergency Department Pelvic ultrasound was performed with patient consent. The curvilinear probe was used in the transverse and sagittal views within the suprapubic region revealing positive intrauterine . heart rate was 176 with positive movement. HemaPrompt Point of Care Internal Pos. & Neg. Controls: Passed Fecal Specimen Occult Blood: Negative Diagnosis Primary Impression: Abdominal pain Qualified Codes: R10.84 - Generalized abdominal pain Additional Impressions: Intrauterine History of hematemesis Patient Instructions: Abdominal Hysterectomy (DC), General Instructions Scripts No Active Prescriptions or Reported Meds Disposition: 01 DISCHARGE HOME Condition: Stable Britany Hurtado MD August 10, 2017 15:26
== END 2017-08-10 16:23 | disposition home or self-care (01) ==
LOC: NEPD 13:17
DX: O26.899 Other specified pregnancy related conditions, unspecified trimester (principal); R10.84 Generalized abdominal pain; K92.0 Hematemesis; J45.909 Unspecified asthma, uncomplicated
CPT/HCPCS: 80048; 81001; 84702; 85025; 99283

== ENCOUNTER 2018-03-15 17:43 | Inpatient (IN) ==
[2018-03-15] MEDS ORDERED: fentaNYL Citrate Inj 100 MCG/2 ML Ampul IV.PUSH PRN (18:40)
[2018-03-15] MEDS ORDERED: Oxytocin 30 Units/500ml Premix 30 UNITS/500 ML BAG IV.SIG ONE (18:40)
[2018-03-15] MEDS ORDERED: Sod Chloride 0.9% Inj 1,000 ML IV.CONT PRN (18:40)
[2018-03-15] MEDS ORDERED: Sodium Chlor 0.9% Inj 500 ML IV.SIG PRN (18:40)
[2018-03-15] MEDS ORDERED: Naloxone Inj 0.4 MG/ML Vial IV.PUSH PRN (18:40)
[2018-03-15] MEDS ORDERED: Oxytocin 30 Units/500ml Premix 30 UNITS/500 ML BAG IV.SIG PRN (18:41)
[2018-03-15] MEDS ORDERED: Citric Acid/Sodium Citrate Liq 30 ML UDC PO SCH (18:45)
--- NOTE | 2018-03-15 18:50 | ED ---
History of Present Illness Primary Care Physician: NOT REQUIRED Chief Complaint: ctx, ?LOF History of Present Illness: Pt is a 22y/o @ 41.1wks by LMP c/w 19wk US. She has had limited PNC with Dr. Campuzano but has not been seen since 28wks. She reports LOF x2d and pain "all over". She has had no VB. +FM. OBHx: x3 PIH with 1st only glucola not performed this 2' to pt non-compliance Weeks Gestation:: 41 Para: 3 : 4 Review of Systems All other systems reviewed negative except as stated in HPI PMFSH - Medical / Surgical Hx Neg / Unobtainable Surgical History: No Previous Surgery - Medical History Medical History: Medical History (Last Updated 03/15/18 @ 18:44 by Liz Rodriguez MD) Asthma - Tobacco History Smoking Status: Current some day smoker - Alcohol History How Often Do You Have a Drink Containing Alcohol: Never - Substance Use History Substance History: Active Abuse (MJ) - Travel History Recent Travel in the [place] Within the Last 8 Weeks: No Recent Travel Out of the Country Within the Last 8 Weeks: No Medications and Allergies Active Medications: Active Medications Citric Acid/Sodium Citrate (Sodium Citrate/Citric Acid Liq) 30 ml PO [employer] [place] Stop: 03/19/18 18:44 Fentanyl Citrate (Fentanyl Inj) 50 mcg IV.PUSH Q1H PRN PRN Reason: Pain Scale 3 - 5 Lactated Ringer's (Lr 1000 Ml Inj) 1,000 mls @ 3,000 mls/hr IV.SIG UNSCH PRN PRN Reason: compromise or epidural Lactated Ringer's (Lr 1000 Ml Inj) 1,000 mls @ 125 mls/hr IV.CONT .Q8H [place] Sodium Chloride (Ns Inj) 500 mls @ 1,000 mls/hr IV.SIG UNSCH PRN PRN Reason: SEE LABEL COMMENTS Sodium Chloride (Ns Inj) 1,000 mls @ 100 mls/hr IV.CONT .Q10H PRN PRN Reason: SEE LABEL COMMENTS Oxytocin (Pitocin 30 Units/Ns 500 Ml Premix) 30 units in 500 mls @ 999 mls/hr IV.SIG BOLUS ONE Stop: 03/15/18 19:10 Lidocaine HCl (Xylocaine 1% Inj) 0.1 ml I-DERMAL PRN PRN PRN Reason: For IV start Stop: 03/18/18 18:39 Lidocaine HCl (Xylocaine 1% Inj) 10 ml INFILTRATN PRN PRN PRN Reason: For episiotomy repair Stop: 03/17/18 18:39 Mineral Oil (Muri-Lube Oil) 10 ml TOPICAL PRN PRN PRN Reason: PRN perineal massage Misoprostol (Cytotec) 25 mcg VAGINAL ONCE PRN PRN Reason: For cervical ripening Stop: 03/16/18 22:40 Naloxone HCl (Narcan Inj) 0.1 mg IV.PUSH Q2M PRN PRN Reason: for opiate reversal Ondansetron HCl (Zofran Inj) 4 mg IV.PUSH Q6H PRN PRN Reason: NAUSEA OR VOMITING Sodium Chloride (Ns Flush) 2 ml IV.FLUSH BID [place] Sodium Chloride (Ns Flush) 2 ml IV.FLUSH PRN PRN PRN Reason: FLUSH AFTER USING IV ACCESS Sodium Chloride (Ns Flush) 2 ml IV.FLUSH BID [place] Sodium Chloride (Ns Flush) 2 ml IV.FLUSH PRN PRN PRN Reason: FLUSH AFTER USING IV ACCESS Allergies Allergy/AdvReac Type Severity Reaction Status Date / Time No Known Allergies Allergy Verified 03/15/18 18:03 Home Medications Medication Instructions Recorded Confirmed Type Flintstones Tab Chew 1 tab PO DAILY 03/15/18 03/15/18 History albuterol sulfate [ProAir HFA] 03/15/18 History Exam Vital signs: Vital Signs 03/15/18 18:07 Temperature 98.5 F Pulse Rate 95 H Respiratory Rate 16 Blood Pressure 123/70 Intake & Output 03/14/18 03/15/18 03/15/18 18:59 06:59 18:59 Weight 117.934 kg Narrative: General: well developed, well nourished, no acute distress HEENT: normocephalic atraumatic, extraocular movements intact, neck supple Abdomen: soft, gravid, nontender, nondistended Uterus: fundus term Extremities: full range of motion, 2+ edena, no calf tenderness Skin: normal coloration, no rashes, no suspicious skin lesions noted Neurologic: cranial nerves 2-12 grossly intact, normal muscle tone, normal gait Psychiatric: normal mood and affect, appropriate Cvx: 270/-3 Tocometry: rippling seen FHTs: 130s, +accels, no decels, moderate variability, reactive Assessment and Plan - Diagnosis (1) 41 weeks gestation of Code(s): Z3A.41 - 41 weeks gestation of Status: Acute (2) Post-dates Code(s): O48.0 - Post-term Status: Acute (3) Limited care Code(s): O09.30 - Supervision of with insufficient care, unspecified trimester Status: Acute (4) Asthma Code(s): J45.909 - Unspecified asthma, uncomplicated Status: Acute (5) No leakage of amniotic fluid into vagina Code(s): Z03.71 - Encounter for suspected problem with amniotic cavity and membrane ruled out Status: Acute - Plan 22y/o @ 41.1wks with ?LOF, postdates, limited PNC, and poorly controlled asthma. -- amnisure neg -- FHTs cat 1 -- discussed need for PD IOL -- HIV, RPR, GBS, GC/CT -- PIH labs for epigastric pain and swelling -- admit to L&D, CEFM/toco, CLD, cytotec --> pitocin -- NO HEMABATE Discharge Plan - Discharge Disposition Patient Disposition: ED Admit(ED Internal Use Only) - Discharge Condition Condition: Stable - Physicians Team ED Provider: Liz Rodriguez V Primary Care Provider: NOT REQUIRED, - Rxs /Orders / Referrals /Forms Prescriptions: No Action albuterol sulfate [ProAir HFA] 90 mcg/actuation Hfa Aerosol Inhaler Flintstones Tab Chew 1 tab PO DAILY - Discharge Instructions Print Language: Occitan
[2018-03-15 20:45] LABS: Anion Gap 10 meq/L (5-15); Aspartate Aminotransferase 22 U/L (15-37); Blood Urea Nitrogen 10 mg/dL (7-18); Calcium 8.7 mg/dL (8.5-10.1); Carbon Dioxide 25.2 meq/L (21.0-32.0); Chloride 104 meq/L (98-107); Glomerular Filtration Rate Greater Than 89 mL/min (>89); Glucose,Random 63 mg/dL (74-106); Potassium 3.5 meq/L (3.5-5.1); Sodium 139 meq/L (136-145)
[2018-03-15 20:46] LABS: Alanine Aminotransferase 14 U/L (10-53)
[2018-03-15 20:49] LABS: Alkaline Phosphatase 160 U/L (45-117); Total Protein 7.3 g/dL (6.4-8.2)
[2018-03-15 20:53] LABS: Bacteria,Urine Few /hpf; Bilirubin,Urine Negative (Negative); Clarity,Urine Hazy (Clear); Color,Urine Yellow (Yellw/Straw); Glucose,Urine (UA) Negative (Negative); Leukocyte Esterase,Urine Moderate (Negative); Mucus,Urine Few /lpf (Occasional); Nitrite,Urine Negative (Negative); Specific Gravity,Urine 1.026 (1.002-1.035); Squamous Epithelial Cell,Urine 6 /hpf (0-5)
[2018-03-15 21:06] LABS: Hematocrit 28.2 % (35.0-46.0); Hemoglobin 9.6 gm/dL (11.6-15.3); Mean Corpuscular HGB Conc 33.9 % (32.0-36.0); Mean Corpuscular Hemoglobin 26.9 pg (27.0-34.0); Mean Corpuscular Volume 79.2 fL (80.0-100.0); Mean Platelet Volume 8.8 fL (7.0-11.0); Platelet Count 182 th/mm3 (150-450); Red Blood Count 3.56 mil/mm3 (4.00-5.30); Red Cell Distribution Width 15.2 % (11.6-17.2); White Blood Count 10.4 th/mm3 (4.0-11.0)
[2018-03-16] MEDS ORDERED: Penicillin G Potassium Inj 5,000,000 UNIT in Sodium Chloride 0.9% Inj 100 ML IV.SIG ONE (01:00)
[2018-03-16] MEDS ORDERED: fentaNYL 2MCG-Bupiv 0.125% Epi 150 ML EPIDURAL ONE (01:17)
[2018-03-16] MEDS ORDERED: fentaNYL Citrate Inj 100 MCG/2 ML Ampul EPIDURAL ONE (02:00)
[2018-03-16] MEDS ORDERED: fentaNYL 2MCG-Bupiv 0.125% Epi 150 ML EPIDURAL PRN (02:00)
[2018-03-16] MEDS ORDERED: Bisacodyl 10 MG Supp RECTAL PRN (04:01)
[2018-03-16] MEDS ORDERED: Naloxone Inj 0.4 MG/ML Vial IV.PUSH PRN (04:01)
[2018-03-16] MEDS ORDERED: Oxytocin 30 Units/500ml Premix 30 UNITS/500 ML BAG IV.CONT PRN (04:01)
[2018-03-16] MEDS ORDERED: Witch Hazel 50%/Glyderin 12.5% 40 Pad Jar RECTAL PRN (04:01)
[2018-03-16] MEDS ORDERED: Benzocaine 20% Top Spray 60 ML Can TOPICAL PRN (04:01)
[2018-03-16] MEDS ORDERED: Zolpidem Tartrate 5 MG Tablet PO PRN (04:01)
--- NOTE | 2018-03-16 04:04 | P.OBDELI ---
Weeks Gestation: 41 Patient Started Active Labor: Yes Medical Induction of Labor: Yes Artificial Rupture of Membrane: Yes (at time of delivery) Anesthesia: None Episiotomy: none Vaginal Delivery: Normal Presentation: Occiput anterior Nuchal Cord: None Delayed Cord Clamping (45 sec): Yes Shoulder Dystocia: Suprapubic pressure given, Vesta maneuver done, Other (L posterior arm delivered (total time 40sec)) Placenta: Spontaneous delivery, Not intact Laceration: None Estimated blood loss (mL): 100 Infant: Female Infant Female A Infant Delivery Date: 03/16/18 Infant Delivery Time: 03:49 Weight: 4.05 kg score (1 min): 8 score (5 min): 9
[2018-03-16] MEDS: Penicillin G Potassium Inj 2,500,000 UNIT in Sodium Chlor 0.9% Inj 100 ML IV.SIG SCH ×5 (04:45→23:50)
[2018-03-16] MEDS: Senna/Docusate Sodium 8.6/50 MG Tablet PO SCH ×2 (08:20→20:02)
[2018-03-16] MEDS: Acetaminophen 325 MG Tablet PO PRN (10:43)
[2018-03-16] MEDS ORDERED: Measles/Mumps/Rubella Vaccine Inj 0.5 ML Vial SQ ONE (16:00)
[2018-03-16] MEDS ORDERED: Diphtheria/Tetanus/Pertussis Vaccine Inj 0.5 ML Syringe IM ONE (16:00)
[2018-03-16] MEDS ORDERED: Influenza (Quadrivalent) Vaccine 0.5 ML Syringe IM ONE (21:00)
[2018-03-17] MEDS: Acetaminophen 325 MG Tablet PO PRN ×3 (00:56→15:37)
[2018-03-17] MEDS: Penicillin G Potassium Inj 2,500,000 UNIT in Sodium Chlor 0.9% Inj 100 ML IV.SIG SCH ×5 (04:16→17:52)
--- NOTE | 2018-03-17 07:34 | P.PNOB ---
Subjective Post day: 1 Interval history: day # 1. AFVSS overnight. Patient complaining of mild cramping abdominal pain. Decreased lochia. Denies dysuria. No breast tenderness. She is feeding the baby via bottle. Appetite good. No nausea or vomiting. Passing flatus. No bowel movements. Ambulating well. Denies calf pain, shortness of breath, dysuria, or cough. Otherwise, she is doing well this morning and has no other complaints. Patient would like depo shot for contraception. She has tubal paperwork already signed. Objective Vital Signs/I&O: Vital Signs 03/16/18 08:00 03/16/18 19:04 Temperature 98.0 F 98.5 F Pulse Rate 63 68 Respiratory Rate 16 18 Blood Pressure 140/80 124/71 Result Diagrams: 03/15/18 18:45 03/15/18 18:45 Objective Remarks: GENERAL: Well-nourished, well-developed patient. CARDIOVASCULAR: Regular rate and rhythm without murmurs, gallops, or rubs. RESPIRATORY: Breath sounds equal bilaterally. No accessory muscle use. ABDOMEN/GI: Abdomen soft, non-tender. Fundus: Firm, non-tender at umbilicus. GENITOURINARY: Light to moderate bleeding. EXTREMITIES: No cyanosis or edema, non-tender, without signs of DVT. Medications and IVs: Active Medications Acetaminophen (Tylenol) 650 mg PO Q4H PRN PRN Reason: PAIN SCALE 1 TO 2 Last Admin: 03/17/18 07:26 Dose: 650 mg Al Hydroxide/Mg Hydroxide (Milk Of Magnesia Liq) 30 ml PO Q12H PRN PRN Reason: Mild Constipation Benzocaine (Americaine 20% [place]) 1 spray TOPICAL Q4H PRN PRN Reason: For Perineum Discomfort Last Admin: 03/16/18 19:52 Dose: 1 spray Bisacodyl (Dulcolax Supp) 10 mg RECTAL DAILY PRN PRN Reason: SEVERE CONSITIPATION Citric Acid/Sodium Citrate (Sodium Citrate/Citric Acid Liq) 30 ml PO [employer] [facility] Stop: 03/19/18 18:44 Fentanyl Citrate (Fentanyl Inj) 50 mcg IV.PUSH Q1H PRN PRN Reason: Pain Scale 3 - 5 Lactated Ringer's (Lr 1000 Ml Inj) 1,000 mls @ 3,000 mls/hr IV.SIG UNSCH PRN PRN Reason: compromise or epidural Lactated Ringer's (Lr 1000 Ml Inj) 1,000 mls @ 125 mls/hr IV.CONT .Q8H [facility] Last Admin: 03/17/18 04:16 Dose: Not Given Sodium Chloride (Ns Inj) 500 mls @ 1,000 mls/hr IV.SIG UNSCH PRN PRN Reason: SEE LABEL COMMENTS Sodium Chloride (Ns Inj) 1,000 mls @ 100 mls/hr IV.CONT .Q10H PRN PRN Reason: SEE LABEL COMMENTS Oxytocin (Pitocin 30 Units/Ns 500 Ml Premix) 30 units in 500 mls @ 2 mls/hr IV.SIG TITRATE PRN; Protocol PRN Reason: For induction of labor Penicillin G Potassium 2,500, (000 unit/ Sodium Chloride) 100 mls @ 200 mls/hr IV.SIG Q4H [facility] Last Admin: 03/17/18 05:30 Dose: Not Given Fentanyl/Bupivacaine/Sodium Chlor (Fentanyl 2 Mcg-Bupiv 0.125% Epi) 150 mls @ 14 mls/hr EPIDURAL PRN PRN PRN Reason: for Labor Pain Last Admin: 03/16/18 02:00 Dose: 14 mls/hr Oxytocin (Pitocin 30 Units/Ns 500 Ml Premix) 30 units in 500 mls @ 100 mls/hr IV.CONT UNSCH PRN PRN Reason: Heavy bleeding Last Admin: 03/16/18 04:46 Dose: 100 mls/hr Ibuprofen (Motrin) 800 mg PO Q8H PRN PRN Reason: For Cramping Last Admin: 03/17/18 07:25 Dose: 800 mg Lactulose (Lactulose Liq) 30 ml PO DAILY PRN PRN Reason: SEVERE CONSITIPATION Lidocaine HCl (Xylocaine 1% Inj) 0.1 ml I-DERMAL PRN PRN PRN Reason: For IV start Stop: 03/18/18 18:39 Lidocaine HCl (Xylocaine 1% Inj) 10 ml INFILTRATN PRN PRN PRN Reason: For episiotomy repair Stop: 03/17/18 18:39 Mineral Oil (Muri-Lube Oil) 10 ml TOPICAL PRN PRN PRN Reason: PRN perineal massage Naloxone HCl (Narcan Inj) 0.1 mg IV.PUSH Q2M PRN PRN Reason: for opiate reversal Naloxone HCl (Narcan Inj) 0.1 mg IV.PUSH Q2M PRN PRN Reason: for opiate reversal Ondansetron HCl (Zofran Inj) 4 mg IV.PUSH Q6H PRN PRN Reason: NAUSEA OR VOMITING Ondansetron HCl (Zofran Odt) 4 mg PO Q6H PRN PRN Reason: NAUSEA OR VOMITING Senna/Docusate Sodium (Mariya-Colace) 1 tab PO BID [facility] Last Admin: 03/16/18 20:02 Dose: 1 tab Sennosides (Senokot) 17.2 mg PO Q12H PRN PRN Reason: Moderate Constipation Sodium Chloride (Ns Flush) 2 ml IV.FLUSH BID [facility] Last Admin: 03/16/18 20:02 Dose: 2 ml Sodium Chloride (Ns Flush) 2 ml IV.FLUSH PRN PRN PRN Reason: FLUSH AFTER USING IV ACCESS Sodium Chloride (Ns Flush) 2 ml IV.FLUSH BID [facility] Last Admin: 03/16/18 23:51 Dose: Not Given Sodium Chloride (Ns Flush) 2 ml IV.FLUSH PRN PRN PRN Reason: FLUSH AFTER USING IV ACCESS Sodium Chloride (Ns Flush) 2 ml IV.FLUSH BID [facility] Last Admin: 03/16/18 23:51 Dose: Not Given Sodium Chloride (Ns Flush) 2 ml IV.FLUSH PRN PRN PRN Reason: FLUSH AFTER USING IV ACCESS Witch Shonda/Glycerin (Tucks Pads) 1 applicatio RECTAL QID PRN PRN Reason: HEMORRHOIDS Last Admin: 03/16/18 19:52 Dose: 1 applicatio Zolpidem Tartrate (Ambien) 5 mg PO HS PRN PRN Reason: SLEEP Assessment and Plan - Diagnosis (1) Vaginal delivery Code(s): O80 - Encounter for full-term uncomplicated delivery Status: Acute (2) 41 weeks gestation of Code(s): Z3A.41 - 41 weeks gestation of Status: Acute - Plan 22 y/o who is PPD# 1 s/p vaginal delivery. -Continue routine care. -Tylenol and Motrin as needed for pain. -Encouraged OOB. Advised pelvic rest for 6 wks. -Will need a f/u appt. within 6 wks. -Contraception: She would like the depo shot, to be given prior to discharge. Patient has tubal ligation paperwork signed. -Anticipate discharge tomorrow. benedicto Mcgee and, OB attending, Dr. Lau
[2018-03-17] MEDS: Senna/Docusate Sodium 8.6/50 MG Tablet PO SCH ×2 (12:46→21:49)
[2018-03-18] MEDS: Penicillin G Potassium Inj 2,500,000 UNIT in Sodium Chlor 0.9% Inj 100 ML IV.SIG SCH ×2 (06:36→08:47)
--- NOTE | 2018-03-18 07:38 | P.PNOB ---
Subjective Post day: 2 Interval history: Patient is a 22-year-old G 4 P 4 delivered at 41 weeks and 1 days. Patient is day 2 after spontaneous vaginal delivery. Patient's pain is well- controlled. Patient reports eating and drinking without any nausea or vomiting. Patient reports minimal bleeding. Patient has passed gas but no bowel movements. Patient is walking without lower extremity pain or shortness of breath. Patient reports foot swelling but states that this is much improved since delivery. Patient reports desire for contraception. Patient would like a depot shot today. She reports that she already signed the tubal paperwork. Objective Vital Signs/I&O: Vital Signs 03/17/18 08:40 03/17/18 19:15 Temperature 98.3 F 99.4 F Pulse Rate 65 72 Respiratory Rate 20 18 Blood Pressure 130/58 L 121/68 Result Diagrams: 03/15/18 18:45 03/15/18 18:45 Objective Remarks: GENERAL: Well-nourished, well-developed patient. CARDIOVASCULAR: Regular rate and rhythm without murmurs, gallops, or rubs. RESPIRATORY: Breath sounds equal bilaterally. No accessory muscle use. ABDOMEN/GI: Abdomen soft, non-tender. Fundus: Firm, non-tender at umbilicus. GENITOURINARY: Light to moderate bleeding. EXTREMITIES: Pedal edema bilaterally, non-tender, without signs of DVT. Medications and IVs: Active Medications Acetaminophen (Tylenol) 650 mg PO Q4H PRN PRN Reason: PAIN SCALE 1 TO 2 Last Admin: 03/17/18 15:37 Dose: 650 mg Al Hydroxide/Mg Hydroxide (Milk Of Magnesia Liq) 30 ml PO Q12H PRN PRN Reason: Mild Constipation Benzocaine (Americaine 20% Top [place]) 1 spray TOPICAL Q4H PRN PRN Reason: For Perineum Discomfort Last Admin: 03/16/18 19:52 Dose: 1 spray Bisacodyl (Dulcolax Supp) 10 mg RECTAL DAILY PRN PRN Reason: SEVERE CONSITIPATION Citric Acid/Sodium Citrate (Sodium Citrate/Citric Acid Liq) 30 ml PO [facility]ORT [facility] Stop: 03/19/18 18:44 Fentanyl Citrate (Fentanyl Inj) 50 mcg IV.PUSH Q1H PRN PRN Reason: Pain Scale 3 - 5 Lactated Ringer's (Lr 1000 Ml Inj) 1,000 mls @ 3,000 mls/hr IV.SIG UNSCH PRN PRN Reason: compromise or epidural Lactated Ringer's (Lr 1000 Ml Inj) 1,000 mls @ 125 mls/hr IV.CONT .Q8H [facility] Last Admin: 03/18/18 06:36 Dose: Not Given Sodium Chloride (Ns Inj) 500 mls @ 1,000 mls/hr IV.SIG UNSCH PRN PRN Reason: SEE LABEL COMMENTS Sodium Chloride (Ns Inj) 1,000 mls @ 100 mls/hr IV.CONT .Q10H PRN PRN Reason: SEE LABEL COMMENTS Oxytocin (Pitocin 30 Units/Ns 500 Ml Premix) 30 units in 500 mls @ 2 mls/hr IV.SIG TITRATE PRN; Protocol PRN Reason: For induction of labor Penicillin G Potassium 2,500, (000 unit/ Sodium Chloride) 100 mls @ 200 mls/hr IV.SIG Q4H [facility] Last Admin: 03/18/18 06:36 Dose: Not Given Fentanyl/Bupivacaine/Sodium Chlor (Fentanyl 2 Mcg-Bupiv 0.125% Epi) 150 mls @ 14 mls/hr EPIDURAL PRN PRN PRN Reason: for Labor Pain Last Admin: 03/16/18 02:00 Dose: 14 mls/hr Oxytocin (Pitocin 30 Units/Ns 500 Ml Premix) 30 units in 500 mls @ 100 mls/hr IV.CONT UNSCH PRN PRN Reason: Heavy bleeding Last Admin: 03/16/18 04:46 Dose: 100 mls/hr Ibuprofen (Motrin) 800 mg PO Q8H PRN PRN Reason: For Cramping Last Admin: 03/17/18 15:37 Dose: 800 mg Lactulose (Lactulose Liq) 30 ml PO DAILY PRN PRN Reason: SEVERE CONSITIPATION Lidocaine HCl (Xylocaine 1% Inj) 0.1 ml I-DERMAL PRN PRN PRN Reason: For IV start Stop: 03/18/18 18:39 Mineral Oil (Muri-Lube Oil) 10 ml TOPICAL PRN PRN PRN Reason: PRN perineal massage Naloxone HCl (Narcan Inj) 0.1 mg IV.PUSH Q2M PRN PRN Reason: for opiate reversal Naloxone HCl (Narcan Inj) 0.1 mg IV.PUSH Q2M PRN PRN Reason: for opiate reversal Ondansetron HCl (Zofran Inj) 4 mg IV.PUSH Q6H PRN PRN Reason: NAUSEA OR VOMITING Ondansetron HCl (Zofran Odt) 4 mg PO Q6H PRN PRN Reason: NAUSEA OR VOMITING Senna/Docusate Sodium (Mariya-Colace) 1 tab PO BID [facility] Last Admin: 03/17/18 21:49 Dose: 1 tab Sennosides (Senokot) 17.2 mg PO Q12H PRN PRN Reason: Moderate Constipation Sodium Chloride (Ns Flush) 2 ml IV.FLUSH BID [facility] Last Admin: 03/17/18 21:54 Dose: Not Given Sodium Chloride (Ns Flush) 2 ml IV.FLUSH PRN PRN PRN Reason: FLUSH AFTER USING IV ACCESS Witch Shonda/Glycerin (Tucks Pads) 1 applicatio RECTAL QID PRN PRN Reason: HEMORRHOIDS Last Admin: 03/16/18 19:52 Dose: 1 applicatio Zolpidem Tartrate (Ambien) 5 mg PO HS PRN PRN Reason: SLEEP Assessment and Plan - Diagnosis (1) Vaginal delivery Code(s): O80 - Encounter for full-term uncomplicated delivery Status: Acute - Plan Patient is a 22-year-old G 4 P 4 delivered at 41 weeks and 1 days. Patient is day 2 after vaginal delivery. Patient was counseled to do 6 weeks of pelvic rest. Patient was counseled to follow up in 6 weeks. Patient requested follow-up and contraception. She will be getting the Depakote shot today. She has already signed tubal paperwork. --AF VSS --Continue routine care --Motrin when necessary for pain --Encourage OOB --Pelvic rest for 6 weeks will need follow-up appointment at that time. --Contraception: Depo-Provera shot today --Case management consult to aid in obtaining a car seat --Anticipate discharge today after the patient obtains a car seat.
[2018-03-18] MEDS ORDERED: medroxyPROGESTERone Acetate Inj 150 MG/ML Syringe IM ONE (07:51)
[2018-03-18] MEDS: Senna/Docusate Sodium 8.6/50 MG Tablet PO SCH (08:42)
== END 2018-03-18 12:50 | disposition home or self-care (01) ==
LOC: HOBED 17:43 → H2E 18:51 → H1EA 03-16 06:04
PROVIDERS: ADMIT Obstetrics & Gynecology; ATTEND Obstetrics & Gynecology